=== PATIENT | female | born 1965 | race Caucasian/White ===

== ENCOUNTER 2020-06-12 07:22 | Inpatient (IN) ==
[~2020-06-12 07:22] MED LIST: CLONIDINE IJ PRN; EPI IJ PRN; ISOPROPYL ALCOHOL 480 APPL BTL MC ONE; TRANEXAMIC ACID 1,000 MG in NORMAL SALINE 100 ML IV PRN; VANCOMYCIN HCL 1 GM VIAL ONE; VANCOMYCIN/WATER FOR INJ (PEG) 1 GM/200 ML BAG IV PRN; [UNRECOGNIZED DRUG - OTHER] IJ PRN; ceFAZolin SODIUM 1 GM VIAL IV PRN
[2020-06-12] MEDS: RINGER'S SOLUTION,LACTATED 1,000 ML IV PRN ×3 (08:07→11:05)
[2020-06-12] MEDS ORDERED: BUPIVACAINE HCL/EPINEPHRINE 50 ML VIAL IJ ONE (08:13)
[2020-06-12] MEDS ORDERED: BUPIVACAINE HCL/PF 10 ML VIAL ONE (08:14)
[2020-06-12] MEDS ORDERED: LIDOCAINE HCL 20 ML VIAL ONE (08:14)
[2020-06-12] MEDS ORDERED: PROPOFOL VIAL IV ONE (08:14)
[2020-06-12] MEDS ORDERED: MIDAZOLAM HCL/PF 5 MG/ML VIAL ONE (08:14)
[2020-06-12] MEDS ORDERED: NORMAL SALINE 20 ML VIAL ONE (08:14)
--- NOTE | 2020-06-12 08:33 | ANES ---
Anesthesia Pre Procedure Eval Vitals/Labs: Last Vital Signs Temp 36.6 C 06/12/20 07:49 Pulse 71 06/12/20 07:49 Resp 16 06/12/20 07:49 BP 129/72 06/12/20 07:49 Pulse Ox 95 06/12/20 07:49 HOME MEDICATIONS aspirin 325 mg tablet 325 mg PO DAILY 01/14/18 [Last Taken 06/05/20] ibuprofen 200 mg capsule 200 mg PO TID-QID PRN 01/14/18 [Last Taken 06/05/20] multivitamin 1 tab PO DAILY 01/14/18 [Last Taken Unknown] furosemide 40 mg tablet 40 mg PO DAILY #90 tab 11/14/19 [Last Taken 06/12/20 06:45] escitalopram oxalate 20 mg tablet 20 mg PO DAILY #90 tab 02/06/20 [Last Taken Unknown] losartan 100 mg tablet 100 mg PO DAILY #90 tab 02/13/20 [Last Taken 06/12/20 06:45] albuterol sulfate 90 mcg/actuation aerosol inhaler 2 inh IH Q4H PRN #8.5 g 03/12/20 [Last Taken Unknown] Allergies/Adverse Reactions: Allergies Allergy/AdvReac Type Severity Reaction Status Date / Time codeine [Codeine] Allergy Unknown Hives Verified 06/12/20 07:44 amoxicillin [From Augmentin] AdvReac Unknown Diarrhea Verified 06/12/20 07:44 clavulanic acid AdvReac Unknown Diarrhea Verified 06/12/20 07:44 [From Augmentin] - Planned Procedure Planned Procedure: LT Arthroplasty Total Knee Medication List Reviewed:: Yes Allergies Verified: Yes Medical History (Last Reviewed 06/12/20 @ 08:32 by Valdemar Celestin CRNA) Primary osteoarthritis of left knee (Chronic) Refused influenza vaccine (Chronic) Onset Date: ~07/01/18 ADHD (attention deficit hyperactivity disorder) (Chronic) Onset Date: 11/29/12 Asthma (Chronic) Onset Date: Unknown Depression (Chronic) Onset Date: 02/17/13 History of endometriosis (Resolved) Onset Date: Unknown History of uterine fibroid (Resolved) Onset Date: Unknown Hypokalemia (Chronic) Onset Date: 10/06/14 Joint effusion of knee (Resolved) Onset Date: 07/27/12 History of Lyme disease (Resolved) Onset Date: ~1997 Medial meniscus tear (Resolved) Onset Date: 09/22/12 Acute blood loss anemia (Acute) Onset Date: Unknown Hypokalemia (Acute) Onset Date: Unknown Influenza A (Acute) Onset Date: Unknown Surgical History (Last Reviewed 06/12/20 @ 08:32 by Valdemar Celestin CRNA) History of arthroscopic knee surgery (Resolved) Onset Date: 10/11/12 History of colonoscopy (Resolved) Onset Date: ~2013 H/O cystoscopy (Resolved) Onset Date: 11/07/09 History of endometrial ablation (Resolved) Onset Date: ~2006 History of eye surgery (Resolved) Onset Date: ~2010 History of foot surgery (Resolved) Onset Date: Unknown History of hand surgery (Resolved) Onset Date: ~1989 History of knee replacement procedure of right knee (Resolved) Onset Date: 04/03/14 History of tonsillectomy (Resolved) Onset Date: Unknown History of tubal ligation (Resolved) Onset Date: ~1992 History of total vaginal hysterectomy (TVH) (Resolved) Onset Date: 11/07/09 Total knee replacement status (Acute) Onset Date: Unknown History of bladder surgery Onset Date: ~2007 bladder sling History of bladder surgery Onset Date: ~11/07/09 utero sacral ligament fixation - bilateral Family History (Last Reviewed 06/12/20 @ 08:32 by Valdemar Celestin CRNA) Father Heart disease Diabetes Mother Cancer lung CVA (cerebral vascular accident) Sister Cancer colon cancer Grandmother , maternal Liver disease Grandmother , paternal Alzheimers disease Grandfather , maternal Heart disease Rheumatoid arthritis Grandfather , paternal Rheumatic fever Aunt Cancer paternal - ovarian cancer; maternal aunt - lung cancer - Family Anesthesia History Family History:: no untoward family reactions to anesthesia - Airway/Neck/Teeth Within Normal Limits:: Yes Teeth Condition: intact Neck Exam: full range of motion Mallampatti Score: 2 Thyromental (T-M) distance: > 6 cm Mandibulo Hyoid distance: > 3 cm - Respiratory Respiratory Physical: lungs clear Smoking Status: Never smoker Sleep Apnea currently treated: No Sleep Apnea by current assessment: No - Cardiovascular Cardiac History: hypertension Tolerate Activity: Fair Heart Sounds: S1 & S2, Regular - Gastrointestinal NPO since: [place] - Anesthesia Assessment and Plan ASA Class: PS, II Anesthesia Type Plan: Spinal - adductor canal block
[2020-06-12] MEDS ORDERED: WATER IV PRN ×4 (09:00)
[2020-06-12] MEDS ORDERED: DEXTROSE 5% IV PRN ×4 (09:00)
[2020-06-12] MEDS ORDERED: VANCOMYCIN HCL IV PRN ×4 (09:00)
[2020-06-12] MEDS ORDERED: ONDANSETRON HCL/PF 2 MG/ML VIAL IV PRN (11:06)
[2020-06-12] MEDS ORDERED: MAG HYDROX/ALUMINUM HYD/SIMETH 30 ML UDC PO PRN (11:06)
[2020-06-12] MEDS ORDERED: DEXTROSE 5%-LACTATED RINGERS 1,000 ML IV PRN (11:06)
[2020-06-12] MEDS ORDERED: ZOLPIDEM TARTRATE 5 MG TABLET PO PRN (11:06)
[2020-06-12] MEDS ORDERED: diphenhydrAMINE HCL 50 MG/ML VIAL IV PRN (11:06)
[2020-06-12] MEDS ORDERED: MAGNESIUM HYDROXIDE 30 ML UDC PO PRN (11:06)
[2020-06-12] MEDS ORDERED: ACETAMINOPHEN 500 MG TABLET PO PRN (11:06)
--- NOTE | 2020-06-12 11:06 | OR ---
Operative Report - Dictated Report Narrative: Date: 06/12/2020 Preoperative diagnosis: Left knee degenerative joint disease. Postoperative diagnosis: Left knee degenerative joint disease. Procedure: Left total knee arthroplasty. Surgeon: Hralan Burnham M.D. Sectional Belt Mold Assembler: Steve Rosenbaum PA-C (provided and essential set of skilled, educated hands that assisted with transfer, positioning, prepping, draping, manipulation, retraction, placement of jigs, injection, insertion of implants, irrigation, closure wounds, and dressings all of which could not be performed by the available surgical crew) Anesthesia: Spinal with regional block and local periarticular joint injection. Complications: None Specimens: Bone. Estimated blood loss: Minimal. Tourniquet time: 90 minutes at 350 millimeters of mercury. Retained implants: Depuy Attune size 6 narrow left lugged cemented posterior stabilized femoral component. Size 5 fixed-bearing cemented tibial platform. 6 by 5 millimeter posterior stabilized cross-linked tibial insert. 38 millimeter medialized patella button. Indications: Mrs. Orozco is a 54-year-old female who has had longstanding left knee pain and arthrosis. This patient was followed in my clinic for period of time with significant complaints of left knee pain consistent with arthritic changes. She had failed conservative measures including, but not limited to, activity modification, passage of time, medications, and other conservative measures. Patient wished to proceed with surgical treatment. The risks, benefits, and alternatives were discussed in clinic. The risks of , blood clots, bleeding, infection, nerve/tendon blood vessel/ injury, malposition of components, intraoperative fracture, postoperative limited range of motion, persistent pain, failure of components, and need for additional procedures. Patient wished to proceed consent was obtained after answering all questions. Procedure: After marking the correct extremity on the floor, the patient was taken to the operating room. A timeout was performed. IV antibiotics consisting of Ancef and vancomycin secondary to a positive MRSA screen were administered prior to the procedure. A regional followed by spinal anesthetic was induced by anesthesia, per my request, on the operative table with all bony prominences well-padded. Frank catheter was placed, and a bump was placed under the operative side buttock. SCDs and KELTON hose were utilized on the nonoperative leg. A well-padded tourniquet was applied to the operative thigh. The operative leg was then pre-scrubbed with alcohol, prepped, and draped in a standard sterile fashion. After exsanguinating the extremity with an Esmarch bandage, the tourniquet was inflated. After marking out the anterior knee for standard incision centered over the patella, the skin was incised and dissected down to the joint retinaculum. The joint retinaculum was marked out as well as the horizontal axis of the patella, and a standard medial parapatellar arthrotomy was then made. The most proximal aspect of the quadriceps tendon and the patella tendon insertion were protected from release. A partial synovectomy was performed as well as a resection of the infrapatellar fat pad. The distal femoral fat pad proximal to the trochlea was also resected using cautery. The soft tissues were elevated off the medial aspect of the proximal tibia using a Bess elevator ensuring that we did not transect the medial collateral ligament. Upon initial evaluation range of m otion was approximately 0 degrees to 130 degrees of flexion. There were signs of advanced arthrosis in the medial and patellofemoral greater than lateral joint spaces. There were large marginal osteophytes which were removed with a rongeur. The knee was hyperflexed and the patella was tucked laterally. Protecting the surrounding soft tissues with Homans, an entry drill was placed down the femoral canal using Whitesides line for guidance into the entry point. The intramedullary femoral alignment nara was utilized in order to cut the distal femur in 5 degrees of valgus resecting 10 millimeters of bone. Next the distal femur was sized to a size 6. A posterior referencing guide was utilized to place the distal femoral cutting block in 3 degrees of external rotation. This was pinned into place. The rotation was confirmed both visually and based on anatomic landmarks. The 4 in 1 cutting jig of the appropriate size was utilized in order to make all bony cuts. The ronald wing was used to ensure no notching. Retractors were utilized in order to protect surrounding soft tissues. This cut did not result in any excessive notching. We then cut the box centered over the distal femur. This allowed for resection of the anterior and posterior cruciate ligaments. I then turned my attention to the preparation of the tibia. Using an extra medullary tibial alignment nara, 5 millimeters of bone was resected off the medial articular surface. This was made perpendicular to the mechanical axis of the joint with the alignment nara centered over the ankle mortise. The alignment nara was checked and was noted to be parallel to the mechanical axis, centered over the medial one third of the tibial tubercle, paralleling the anterior surface of the tibia. We then turned our attention to the remaining meniscus and soft tissues. These were removed while protecting the surrounding ligaments and soft tissues. The marginal osteophytes off the anterior, posterior, medial, lateral aspects of the femur and tibia were removed. The tibia was sized out to a size 5. Next the tibia was drilled and punched in an externally rotated position. Next the trial femur and a series of tibial inserts were utilized in order to allow for full extension and maximal flexion. It was found that a 5 millimeter insert gave the best range of motion and stability at multiple flexion points as well as at full extension there was less than 2 mm of gapping both medially and laterally. There is minimal anterior translation with the knee at 90 degrees of flexion and no signs of being able to dislocate the knee. The patella was then prepared. The initial thickness was 21 millimeters. This was reamed down to 12 millimeters parallel to the anterior surface of the patella. It was sized out to a size 38 medialized patella button. This was then drilled and trialed. Without any medial restraint the patella tracked appropriately and did not sublux or dislocate. At this point, it was felt these were the appropriate sized implants, and all trials were removed. The standard periarticular joint injection consisting of ropivacaine, Toradol, and epinephrine were injected into the periarticular joint tissues. The bony surfaces were thoroughly irrigated with a pulsatile-suction saline irrigation device. A bone plug from the prior resected anterior chamfer cut was placed into the drill hole at the distal femur. The bony surfaces were then dried in preparation for placement of the implants. The cement was vacuum mixed per the electricians top helper's instructions. The cement was placed on the dry bony surfaces and posterior aspect of the implants. The implants were impacted into place, removing all extruded cement. At this point anesthesia administered tranexamic acid per protocol intravenously. The knee was placed in extension with axial loading with the trial insert while the cement cured. Once the cement cured, all remaining extruded cement was removed. The knee was placed through a range of motion with the trial insert to ensure appropriate range of motion and stability. Final range of motion was approximately 0 to 130 degrees. The knee was again thoroughly irrigated with pulsatile saline lavage. The final polyethylene insert was then impacted into place ensuring no retained soft tissues. The remaining periarticular joint injection was injected. A medium Hemovac drain was placed exiting superior laterally. The knee was then placed over a triangle and the arthrotomy was closed with interrupted #1 Vicryl after thoroughly irrigating the joint. The deep and subcutaneous tissues were closed with interrupted 0 and 3-0 Vicryl respectively. Skin was closed with a running subcutaneous 3-0 Monocryl and Prineo Dermabond dressing. 4 x 4's, Sof-Rol, and a full leg Arsalan wrap were applied. All sponge, needle, blade, and instrument counts were correct prior to closing the wounds. Postoperative condition: The patient was awoken and transferred to the postanesthesia care unit in stable condition. Plan is to be admitted to the inpatient medical/surgical floor postoperatively for 24 hours of IV antibiotics, physical therapy, occupational therapy, and medical comanagement. Patient will be weightbearing as tolerated with range of motion as tolerated. DVT prophylaxis will be with SCDs, KELTON hose, and pharmacological anticoagulation. Anticipated hospital stay is approximately 1-3 days.
[2020-06-12] MEDS ORDERED: ALBUTEROL SULFATE 2.5 MG/0.5 ML VIAL.NEB IH PRN (11:08)
--- NOTE | 2020-06-12 11:37 | ANES ---
Post Anesthesia Discharge - Transfer of Care Transfer of Care handoff given to nurse: Yes - Discharge from PACU Discharge from PACU when meets criteria: Yes
--- NOTE | 2020-06-12 11:40 | ANES ---
Anesthesia Procedure Note Procedure Note: ANESTHESIA PROCEDURE NOTE Date of procedure: 06/12/2020. Time of procedure: 01 16. Performed by: Filemon Celestin CRNA Data Warehousing Engineer: Tanja Blue RN . Preprocedure diagnosis: Left knee DJD. Post procedure diagnosis: Same. Procedure: Ultrasound-guided left adductor canal block Indications: Post operative analgesia. Findings: Patient was brought to operating room #4, sedated, and given a spinal anesthetic. Patient then placed in a supine position. Patient's left inner thigh was prepped with ChloraPrep. Sound utilized to identify the saphenous nerve in the left adductor canal. A 20-gauge 4 inch regional block needle was advanced under ultrasound guidance until tip of needle was placed proximally to saphenous nerve. 25 mL of 0.25% Marcaine with epinephrine 1-200,000 was injected with adequate spread of local anesthesia noted around the nerve. Regional block needle was removed intact. EBL: Minimal. Fluids: N/A. Specimen: N/A. Post procedure condition: The patient tolerated the procedure well. No complications were noted. Thank you for this consultation Filemon Celestin CRNA
[2020-06-12] MEDS: KETOROLAC TROMETHAMINE 15 MG/ML VIAL IV SCH ×3 (12:35→22:19)
--- NOTE | 2020-06-12 12:54 | ANES ---
Post Anesthesia Assessment - Vital Signs Vitals: Last Vital Signs Temp 36.4 C 06/12/20 12:30 Pulse 69 06/12/20 12:30 Resp 16 06/12/20 12:30 BP 114/44 06/12/20 12:30 Pulse Ox 99 06/12/20 12:30 Airway Patency: Normal - Mental Status Level Of Consciousness: Awake - Pain Level Pain Score: 0 - N/V Assessment Nausea/Vomiting Presence: None Dehydration:: No
[2020-06-12] MEDS: oxyCODONE HCL/ACETAMINOPHEN 1 TAB TABLET PO PRN ×2 (15:11→19:52)
[2020-06-12] MEDS: MORPHINE SULFATE 15 MG TABLET.SA PO SCH (20:24)
[2020-06-12] MEDS ORDERED: SENNOSIDES/DOCUSATE SODIUM 1 TAB TABLET PO SCH (21:00)
[2020-06-12] MEDS ORDERED: VANCOMYCIN/WATER FOR INJ (PEG) 1 GM/200 ML BAG IV SCH (21:06)
[2020-06-12] MEDS: MORPHINE SULFATE 2 MG/ML DISP.SYRIN IV PRN (22:19)
[2020-06-13] MEDS: oxyCODONE HCL/ACETAMINOPHEN 1 TAB TABLET PO PRN ×2 (00:06→05:32)
[2020-06-13] MEDS: MORPHINE SULFATE 2 MG/ML DISP.SYRIN IV PRN ×2 (01:25→07:36)
[2020-06-13] MEDS: KETOROLAC TROMETHAMINE 15 MG/ML VIAL IV SCH ×2 (05:34→10:28)
[2020-06-13 06:29] LABS: Anion Gap 10.5 mmol/L (6.8-13.8); BUN/Creatinine Ratio 16.5 (9.0-21.6); Calcium * 7.9 mg/dL (7.9-10.9); Carbon Dioxide 27.7 mmol/L (24-32.6); Estimated Creat Clear 85.1; Potassium 3.2 mmol/L (3.4-4.6)
[2020-06-13 06:32] LABS: Hematocrit 31.9 % (37.0-47.0); Hemoglobin 10.9 gm/dL (12.5-16.0); Mean Cell Volume 85.8 fl (78-100); Mean Corpuscular Hemoglobin 29.3 pg (27-31); Mean Corpuscular Hgb Conc 34.2 g/dl (32-36); Mean Platelet Volume 9.4 fl (8-12.5); Platelet Count 244 K/mm3 (150-450); Red Blood Count 3.72 M/mm3 (4.2-5.4); Red Cell Distribution Width 12.7 % (11.5-14.0); White Blood Count 8.5 K/mm3 (4.0-10.5)
[2020-06-13] MEDS ORDERED: MORPHINE SULFATE 10 MG/0.5 ML SYRINGE PO PRN (07:57)
[2020-06-13] MEDS ORDERED: SCOPOLAMINE HYDROBROMIDE 1.5 MG PATC TD ONE (08:00)
[2020-06-13] MEDS: MORPHINE SULFATE 15 MG TABLET.SA PO SCH (08:09)
[2020-06-13] MEDS ORDERED: LOSARTAN POTASSIUM 50 MG TABLET PO SCH (09:00)
[2020-06-13] MEDS ORDERED: FUROSEMIDE 40 MG TABLET PO SCH (09:00)
[2020-06-13] MEDS ORDERED: ESCITALOPRAM OXALATE 10 MG TAB PO SCH (09:00)
[2020-06-13] MEDS ORDERED: MULTIVITAMINS 1 CAP CAPSULE PO SCH (09:00)
[2020-06-13] MEDS ORDERED: ENOXAPARIN SODIUM 40 MG/0.4 ML SYRG SC SCH (10:06)
[2020-06-13 10:58] VITALS: BP 150/81
--- NOTE | 2020-06-13 11:45 | DS ---
(1) Status post left knee replacement Problem: Acute (2) Primary osteoarthritis of left knee Problem: Chronic (3) Asthma Problem: Chronic (4) Depression Problem: Chronic (5) Hypokalemia Problem: Acute Date of Discharge:: 06/13/20 Hospital Course: Ms. Orozco was admitted to the floor after undergoing left total knee arthroplast y. Tolerated this well. Was admitted to the floor postoperatively for 24 hours of IV antibiotics, pain control, medical comanagement, and occupational and physical therapy. OT and PT were consulted to assist with activities of daily living and ambulation. Was made weightbearing as tolerated with range of motion as tolerated. Pain was initially controlled with IV regimen. This was transitioned to oral once tolerating a by mouth intake. Was resumed on home diet and medications. Had a Frank catheter inserted and the operating room which was discontinued on postoperative day 1. A drain was placed intraoperatively into the knee which was discontinued on postoperative day 1. Lovenox SCD and KELTON hose were utilized for DVT prophylaxis. Vital signs remained stable to the hospital course. Serial labs were obtained which showed a final hemoglobin of 10.9 grams. BMP was reviewed and was stable. Physical examination throughout the hospital course showed an extremity that had sensation that was intact to light touch, palpable pulses, a benign wound, motor intact to the toes, ankle, and knee. Knee range of motion was approximately 5 degrees to 60 degrees. Once an oral pain regimen was tolerated and physical therapy goals were met, it was felt that they were stable for discharge to home. Instructions: Continue with weightbearing as tolerated and range of motion as tolerated. It is OK to shower on the wound if it is not draining. If you note any drainage or for comfort you can cover with dry gauze and tape. Change every 2-3 days as needed. Continue with physical therapy. Resume home diet. Report any fever over 101.5 Fahrenheit, uncontrolled pain, increased drainage, foul odor of drainage, new or increased calf pain or shortness of breath, or any other significant complaints. A 325mg dialy aspirin will be started after finishing anticoagulation if not allergic. Continue with KELTON hose on the operative extremity until instructed otherwise. No driving until instructed otherwise. Follow up in approximately 10-14 days. Procedures Performed: see notes below List Procedures: Left total knee arthroplasty Results and Findings: Lab Pending Results 06/13/20 05:50: WBC 8.5, RBC 3.72 L, Hgb 10.9 L, Hct 31.9 L, MCV 85.8, MCH 29.3, MCHC 34.2, RDW 12.7, Plt Count 244, MPV 9.4 06/13/20 05:50: Sodium 135, Plasma Sodium 135, Potassium 3.2 L, Chloride 100, Carbon Dioxide 27.7, Anion Gap 10.5, BUN 13, Creatinine 0.79, Est GFR (Non-Af Amer) 80, BUN/Creatinine Ratio 16.5, Random Glucose 128 H, Calcium 7.9 Discharge Location: Home Disposition: Home self-care Condition: Good Discharge Activity: Activity as tolerated, Weight bearing, Other - With wheeled walker Discharge Diet: General/regular food Referrals: Chel Grant MD [Primary Care Provider] - Additional Patient Instructions (free text): Physical therapy at [facility] outpatient rehab department on June 14 at 10:30am. Follow up [facility] Orthopedic office appointment on ThursdayJuly 02 at 9:00am. Prescriptions (Any new or edited meds): Enoxaparin Sodium [Lovenox] 40 mg SC Q24H #7 disp.syrin Transmission Status: Pending to [facility] Morphine Sulfate 1 - 2 tab PO Q4H PRN #80 tab PRN Reason: Pain Transmission Status: Sent to [facility] Morphine Sulfate [Ms Contin] 15 mg PO Q12H #14 tablet.sa Transmission Status: Sent to [facility] Sennosides/Docusate Sodium [Senokot-S] 2 tab PO HS #30 tab Transmission Status: Pending to [facility] Ondansetron HCl [Zofran] 4 mg PO QID PRN #30 tab PRN Reason: Nausea Transmission Status: Pending to [facility] Complete Home Medications List: Complete Home Medication List: aspirin 325 mg tablet 325 mg PO DAILY 01/14/18 ibuprofen 200 mg capsule 200 mg PO TID-QID PRN 01/14/18 multivitamin 1 tab PO DAILY 01/14/18 furosemide 40 mg tablet 40 mg PO DAILY #90 tab 11/14/19 escitalopram oxalate 20 mg tablet 20 mg PO DAILY #90 tab 02/06/20 losartan 100 mg tablet 100 mg PO DAILY #90 tab 02/13/20 albuterol sulfate 90 mcg/actuation aerosol inhaler 2 inh IH Q4H PRN #8.5 g 03/12/20 Enoxaparin Sodium [Lovenox] 40 mg SC Q24H #7 disp.syrin 06/13/20 Morphine Sulfate 1 - 2 tab PO Q4H PRN #80 tab 06/13/20 Morphine Sulfate [Ms Contin] 15 mg PO Q12H #14 tablet.sa 06/13/20 Ondansetron HCl [Zofran] 4 mg PO QID PRN #30 tab 06/13/20 Sennosides/Docusate Sodium [Senokot-S] 2 tab PO HS #30 tab 06/13/20 Amb Orders for Discharge: PT Evaluation and Treatment* Facility: [facility], Location: Rehabilitation Services Forms: Patient Portal Registration
== END 2020-06-13 14:22 | disposition home or self-care (01) | DRG 470 ==
LOC: MS 07:22 → EDSTATUS 08:45
PROVIDERS: ADMIT Orthopaedic Surgery; ATTEND Orthopaedic Surgery
DX: Z96.651 Presence of right artificial knee joint; E87.6 Hypokalemia; M17.12 Unilateral primary osteoarthritis, left knee; F32.9 Major depressive disorder, single episode, unspecified; J45.909 Unspecified asthma, uncomplicated